=== PATIENT | female | born 1995 | race Caucasian/White ===

== ENCOUNTER 2025-06-09 20:07 | Emergency (ER) | payer SELFPAY ==
[2025-06-09 21:22] LABS: Glucose, Urine (Dipstick) Negative (Negative); Leukocyte Negative (Negative); Protein, Urine (Dipstick) Negative (Neg-Trace); Specific Gravity, Urine Greater/Equal 1.030 (1.005-1.030)
[2025-06-09 21:29] LABS: Bacteria/HPF Rare-Few HPF (None Seen); CAUTI Indications for Culture Dysuria,urgency,freq; RBC/HPF None Seen HPF (0-3); WBC/HPF 0-3 HPF (0-3)
[2025-06-09 21:30] LABS: Urine Culture Reflex No No
[2025-06-09] MEDS ORDERED: Metoclopramide HCl 10 MG (2 mL) VIAL ONE (21:33)
[2025-06-09] MEDS ORDERED: Ketorolac Tromethamine 30 MG (1 mL) VIAL ONE (21:33)
[2025-06-09] MEDS ORDERED: diphenhydrAMINE 50 MG/ML VIAL ONE (21:33)
[2025-06-09 21:55] LABS: Pregnancy Test - Urine (BHCG) Negative (Negative); Pregu Control Background? CLEAR/WHITE (CLR/WHITE); Pregu Control Bar Appear? YES (CONTROL BAR)
[2025-06-09 21:56] LABS: ALT (SGPT) 15 U/L (Less than 34); AST (SGOT) 13 U/L (11-34); Albumin 3.7 g/dL (3.1-4.5); Alkaline Phosphatase 89 U/L (40-110); Anion Gap 14 mmol/L (10-20); BUN (Urea Nitrogen) 11 mg/dL (7.0-18.7); Bilirubin, Total 0.3 mg/dL (0.3-1.2); Calc. Creatinine Clearance 0 mL/min (70-130); Calcium 9.0 mg/dL (7.8-10.44); Carbon Dioxide 27 mmol/L (22-29); Chloride 106 mmol/L (98-107); Globulin 3.3 g/dL (2.4-3.5); Glucose 80 mg/dL (70-105); Potassium 3.9 mmol/L (3.5-5.1); Sodium 143 mmol/L (136-145)
[2025-06-09 21:57] LABS: Hematocrit 47.1 % (36.0-47.0); Hemoglobin 14.9 g/dL (12.0-16.0); Mean Corpuscular Hemoglobin 28.2 pg (27.0-31.0); Mean Corpuscular Volume 89.2 fl (78.0-98.0); Platelet Count 295 10x3/uL (130-400); Red Blood Cell (RBC) Count 5.28 mill/uL (4.20-5.40); White Blood Cell (WBC) Count 9.0 10x3/uL (4.8-10.8)
[2025-06-09 22:38] LABS: MDiff Complete? YES; Platelet Adequacy Comment Appears Adequate
== END 2025-06-09 23:26 | disposition home or self-care (01) ==
LOC: MADERS 20:07
DX: R51.9 Headache, unspecified (principal); F17.210 Nicotine dependence, cigarettes, uncomplicated
CPT/HCPCS: 80053; 81001; 81025; 85025; 96365; 96375; J1200; J1885; J2765; J7030